=== PATIENT | female | born 1985 | race African-American/Black ===

== ENCOUNTER 2020-10-16 17:12 | Inpatient (IN) | payer OTHER ==
[2020-10-16 18:32] VITALS: BMI 33.0
[2020-10-16] MEDS ORDERED: NICOTINE POLACRILEX 2 MG GUM BUC PRN (21:18)
[2020-10-16] MEDS ORDERED: P-EPHED 60MG/TRIPROLIDI 2.5MG TABLET PO PRN (21:18)
[2020-10-16] MEDS ORDERED: METHOCARBAMOL 500 MG TABLET PO PRN (21:18)
[2020-10-16] MEDS ORDERED: hydrOXYzine PAMOATE 25 MG CAPSULE (FP) PO PRN (21:18)
[2020-10-16] MEDS ORDERED: MAG HYDROX/AL HYDROX/SIMETH 30 ML UNIT-DOSE CUP PO PRN (21:18)
[2020-10-16] MEDS ORDERED: ONDANSETRON *ODT* 4 MG TABLET SL PRN (21:18)
[2020-10-16] MEDS ORDERED: MAGNESIUM HYDROX 2400MG/30ML ORAL SUSPENSION 30 ML CUP PO PRN (21:18)
[2020-10-16] MEDS ORDERED: DICYCLOMINE HCL 10 MG CAPSULE PO PRN (21:18)
[2020-10-16] MEDS ORDERED: ACETAMINOPHEN 325 MG TABLET (FP) PO PRN ×2 (21:18)
[2020-10-16] MEDS ORDERED: MENTHOL/PHENOL 1 EACH UD MM PRN (21:18)
[2020-10-16] MEDS ORDERED: MAGNESIUM CITRATE 300 ML BOTTLE PO PRN (21:18)
[2020-10-16] MEDS ORDERED: chlordiazePOXIDE HCL 25 MG CAPSULE PO PRN (21:18)
[2020-10-16] MEDS ORDERED: guaiFENesin 200 MG/10 ML 10 ML UNIT-DOSE CUPS PO PRN (21:18)
[2020-10-16] MEDS ORDERED: IBUPROFEN 400 MG TABLET (FP) PO PRN (21:18)
[2020-10-16] MEDS ORDERED: MELATONIN 5 MG TABLETS PO SCH (22:00)
[2020-10-16] MEDS: chlordiazePOXIDE HCL 25 MG CAPSULE PO SCH (22:46)
[2020-10-16] MEDS: THIAMINE HCL 100 MG TABLET (FP) PO SCH (22:46)
[2020-10-17] MEDS: chlordiazePOXIDE HCL 25 MG CAPSULE PO SCH ×4 (05:44→23:56)
[2020-10-17] MEDS ORDERED: MASKS NR ONE (05:47)
[2020-10-17] MEDS ORDERED: MELATONIN 5 MG TABLETS PO PRN (09:31)
[2020-10-17] MEDS: NICOTINE 14 MG/24 HOURS TOPICAL PATCH TD SCH (10:20)
[2020-10-17] MEDS: PRENATAL VITAMINS W/ FOLIC ACID TABLET (FP) PO SCH (10:20)
[2020-10-17] MEDS: BISMUTH SUBSALICYLATE 524 MG/30 ML UD PO PRN ×2 (10:22→13:12)
[2020-10-17 10:34] LABS: HEMATOCRIT 33.7 % (32.4-45.2); HEMOGLOBIN 11.1 GM/dL (10.7-15.3); MCH 26.9 pg (25.7-33.7); MCHC 32.8 g/dl (32.0-36.0); MEAN CELL VOLUME 81.9 fl (80-96); MEAN PLT VOLUME 8.2 fl (7.5-11.1); PLATELET COUNT 254 K/MM3 (134-434); RBC 4.12 M/mm3 (3.60-5.2); RDW 19.1 % (11.6-15.6); WHITE BLOOD COUNT 6.1 K/mm3 (4.0-10.0)
[2020-10-17 10:43] LABS: CALCIUM 8.9 mg/dL (8.5-10.1)
[2020-10-17 10:44] LABS: ALBUMIN 3.2 g/dl (3.4-5.0); BLOOD UREA NITROGEN 13.7 mg/dL (7-18)
[2020-10-17 10:47] LABS: CREATININE 0.8 mg/dL (0.55-1.3)
[2020-10-17 10:48] LABS: BILIRUBIN,TOTAL 0.5 mg/dL (0.2-1); TOT PROT 7.4 g/dl (6.4-8.2)
[2020-10-17] MEDS: THIAMINE HCL 100 MG TABLET (FP) PO SCH (23:56)
[2020-10-18] MEDS: chlordiazePOXIDE HCL 25 MG CAPSULE PO SCH ×4 (06:01→23:01)
[2020-10-18] MEDS: PRENATAL VITAMINS W/ FOLIC ACID TABLET (FP) PO SCH (10:02)
[2020-10-18] MEDS: NICOTINE 14 MG/24 HOURS TOPICAL PATCH TD SCH (10:02)
[2020-10-18] MEDS ORDERED: MINERAL OIL/PET HY-PHL TOPICAL OINTMENT 454 GM JAR TP PRN (17:03)
[2020-10-18] MEDS ORDERED: COLLOIDAL OATMEAL 1 BAR EACH TP PRN (17:03)
[2020-10-18] MEDS ORDERED: MASKS NR ONE (18:55)
[2020-10-18] MEDS: THIAMINE HCL 100 MG TABLET (FP) PO SCH (23:01)
[2020-10-19] MEDS ORDERED: chlordiazePOXIDE HCL 10 MG CAPSULE PO PRN
[2020-10-19] MEDS: chlordiazePOXIDE HCL 10 MG CAPSULE PO SCH ×4 (05:51→22:05)
[2020-10-19] MEDS: MINERAL OIL/PETROLAT/WATER TOPICAL CREAM 113 GM JAR TP PRN ×2 (10:14→17:58)
[2020-10-19] MEDS: NICOTINE 14 MG/24 HOURS TOPICAL PATCH TD SCH (10:14)
[2020-10-19] MEDS: PRENATAL VITAMINS W/ FOLIC ACID TABLET (FP) PO SCH (10:15)
[2020-10-19] MEDS ORDERED: MASKS NR ONE (21:47)
[2020-10-19] MEDS: THIAMINE HCL 100 MG TABLET (FP) PO SCH (22:04)
[2020-10-20] MEDS ORDERED: chlordiazePOXIDE HCL 10 MG CAPSULE PO SCH (05:00)
[2020-10-20 06:06] LABS: SARS-CoV-2 NAA Not Detected (Not Detected)
[2020-10-20 07:05] VITALS: BP 121/88; PULSE 83; TEMP 97.1
[2020-10-21] MEDS ORDERED: chlordiazePOXIDE HCL 10 MG CAPSULE PO ONE (05:00)
== END 2020-10-20 08:25 | disposition home or self-care (01) | DRG 775 ==
LOC: YASAS 17:12 → Y3N 21:34
PROVIDERS: ADMIT Allergy & Immunology; ATTEND Allergy & Immunology
PROC: HZ2ZZZZ Detoxification Services for Substance Abuse Treatment (ICD-10-PCS; principal; 2020-10-16)
DX: F10.230 Alcohol dependence with withdrawal, uncomplicated (principal); F17.210 Nicotine dependence, cigarettes, uncomplicated; F10.280 Alcohol dependence with alcohol-induced anxiety disorder; F10.282 Alcohol dependence with alcohol-induced sleep disorder; F19.24 Other psychoactive substance dependence with psychoactive substance-induced mood disorder; J45.909 Unspecified asthma, uncomplicated; R03.0 Elevated blood-pressure reading, without diagnosis of hypertension; Z56.0 Unemployment, unspecified; Z59.0 Homelessness
CPT/HCPCS: 36415; 80053; 81025; 85027; 86780; 93005; 93010; C9803; U0003; U0005

== ENCOUNTER 2021-05-30 14:17 | Inpatient (IN) | payer OTHER ==
[2021-05-30] MEDS ORDERED: METHOCARBAMOL 500 MG TABLET PO PRN (16:03)
[2021-05-30] MEDS ORDERED: MAGNESIUM HYDROX 2400MG/30ML ORAL SUSPENSION 30 ML CUP PO PRN (16:03)
[2021-05-30] MEDS ORDERED: MAGNESIUM CITRATE 300 ML BOTTLE PO PRN (16:03)
[2021-05-30] MEDS ORDERED: NICOTINE 10 MG CARTRIDGE (INHALER) IH PRN (16:03)
[2021-05-30] MEDS ORDERED: ACETAMINOPHEN 325 MG TABLET (FP) PO PRN ×2 (16:03)
[2021-05-30] MEDS ORDERED: MENTHOL/PHENOL 1 EACH UD MM PRN (16:03)
[2021-05-30] MEDS ORDERED: ONDANSETRON *ODT* 4 MG TABLET SL PRN (16:03)
[2021-05-30] MEDS ORDERED: MAG HYDROX/AL HYDROX/SIMETH 30 ML UNIT-DOSE CUP PO PRN (16:03)
[2021-05-30 16:34] VITALS: BMI 37.3
[2021-05-30] MEDS ORDERED: ALBUTEROL SO4 0.083% IH SOL 2.5 MG/3 ML VIAL.NEB. NEB PRN (17:15)
[2021-05-30] MEDS: hydrOXYzine PAMOATE 25 MG CAPSULE (FP) PO SCH ×2 (17:50→23:07)
[2021-05-30] MEDS: PRENATAL VITAMINS W/ FOLIC ACID TABLET (FP) PO SCH (17:50)
[2021-05-30] MEDS ORDERED: METOPROLOL TARTRATE 25 MG TABLET (FP) PO ONE (18:21)
[2021-05-30] MEDS: BISMUTH SUBSALICYLATE 524 MG/30 ML PO PRN (18:45)
[2021-05-30] MEDS ORDERED: MELATONIN 5 MG TABLETS PO SCH (22:00)
[2021-05-30] MEDS: THIAMINE HCL 100 MG TABLET (FP) PO SCH (23:07)
[2021-05-31] MEDS ORDERED: MASKS NR ONE (05:39)
[2021-05-31] MEDS: hydrOXYzine PAMOATE 25 MG CAPSULE (FP) PO SCH ×5 (05:55→22:51)
[2021-05-31] MEDS ORDERED: COLLOIDAL OATMEAL 1 BAR EACH TP PRN (07:25)
[2021-05-31] MEDS: PRENATAL VITAMINS W/ FOLIC ACID TABLET (FP) PO SCH (10:13)
[2021-05-31] MEDS: BISMUTH SUBSALICYLATE 524 MG/30 ML PO PRN ×2 (11:47→13:05)
[2021-05-31] MEDS ORDERED: diazePAM 5 MG TABLET PO PRN (11:50)
[2021-05-31] MEDS: MINERAL OIL/PETROLAT/WATER TOPICAL CREAM 113 GM JAR TP SCH ×2 (13:06→23:11)
[2021-05-31] MEDS: IBUPROFEN 400 MG TABLET (FP) PO PRN (13:56)
[2021-05-31 14:04] LABS: HEMATOCRIT 34.3 % (32.4-45.2); HEMOGLOBIN 11.5 GM/dL (10.7-15.3); MCH 28.8 pg (25.7-33.7); MCHC 33.6 g/dl (32.0-36.0); MEAN CELL VOLUME 85.9 fl (80-96); MEAN PLT VOLUME 8.1 fl (7.5-11.1); PLATELET COUNT 209 10^3/uL (134-434); RBC 3.99 M/mm3 (3.60-5.2)
[2021-05-31 14:20] LABS: CALCIUM 8.5 mg/dL (8.5-10.1)
[2021-05-31 14:21] LABS: ALBUMIN 2.8 g/dl (3.4-5.0); BLOOD UREA NITROGEN 13.1 mg/dL (7-18)
[2021-05-31 14:24] LABS: CREATININE 0.7 mg/dL (0.55-1.3)
[2021-05-31 14:26] LABS: TOT PROT 6.9 g/dl (6.4-8.2)
[2021-05-31 14:29] LABS: BILIRUBIN,TOTAL 0.4 mg/dL (0.2-1)
[2021-05-31 16:08] LABS: HIV INTERPRETATION NEGATIVE (NEGATIVE)
[2021-05-31] MEDS: THIAMINE HCL 100 MG TABLET (FP) PO SCH (22:50)
[2021-05-31] MEDS: MELATONIN 5 MG TABLETS PO SCH (22:51)
[2021-06-01] MEDS: hydrOXYzine PAMOATE 25 MG CAPSULE (FP) PO SCH ×5 (06:11→23:09)
[2021-06-01] MEDS ORDERED: chlordiazePOXIDE HCL 25 MG CAPSULE PO PRN (09:53)
[2021-06-01] MEDS ORDERED: ALBUTEROL SO4 HFA INHALER IH PRN (09:55)
[2021-06-01] MEDS: PRENATAL VITAMINS W/ FOLIC ACID TABLET (FP) PO SCH (10:31)
[2021-06-01] MEDS: chlordiazePOXIDE HCL 25 MG CAPSULE PO SCH ×3 (10:31→23:09)
[2021-06-01] MEDS: MINERAL OIL/PETROLAT/WATER TOPICAL CREAM 113 GM JAR TP SCH ×2 (10:32→23:10)
[2021-06-01] MEDS: IBUPROFEN 400 MG TABLET (FP) PO PRN (18:24)
[2021-06-01] MEDS: THIAMINE HCL 100 MG TABLET (FP) PO SCH (23:09)
[2021-06-01] MEDS: MELATONIN 5 MG TABLETS PO SCH (23:10)
[2021-06-02] MEDS: hydrOXYzine PAMOATE 25 MG CAPSULE (FP) PO SCH ×5 (06:05→23:11)
[2021-06-02] MEDS: chlordiazePOXIDE HCL 25 MG CAPSULE PO SCH ×4 (06:05→23:11)
[2021-06-02] MEDS ORDERED: MASKS NR ONE (06:09)
[2021-06-02] MEDS: PRENATAL VITAMINS W/ FOLIC ACID TABLET (FP) PO SCH (10:10)
[2021-06-02] MEDS: MINERAL OIL/PETROLAT/WATER TOPICAL CREAM 113 GM JAR TP SCH ×2 (10:14→23:11)
[2021-06-02] MEDS: THIAMINE HCL 100 MG TABLET (FP) PO SCH (23:11)
[2021-06-02] MEDS: MELATONIN 5 MG TABLETS PO SCH (23:11)
[2021-06-03] MEDS: chlordiazePOXIDE HCL 25 MG CAPSULE PO SCH ×4 (05:55→22:37)
[2021-06-03] MEDS: hydrOXYzine PAMOATE 25 MG CAPSULE (FP) PO SCH ×5 (05:56→22:36)
[2021-06-03] MEDS: PRENATAL VITAMINS W/ FOLIC ACID TABLET (FP) PO SCH (11:35)
[2021-06-03] MEDS: MINERAL OIL/PETROLAT/WATER TOPICAL CREAM 113 GM JAR TP SCH ×2 (11:37→22:36)
[2021-06-03] MEDS: THIAMINE HCL 100 MG TABLET (FP) PO SCH (22:36)
[2021-06-03] MEDS: MELATONIN 5 MG TABLETS PO SCH (22:37)
[2021-06-04] MEDS ORDERED: chlordiazePOXIDE HCL 10 MG CAPSULE PO PRN
[2021-06-04] MEDS: chlordiazePOXIDE HCL 10 MG CAPSULE PO SCH ×4 (06:34→23:05)
[2021-06-04] MEDS: hydrOXYzine PAMOATE 25 MG CAPSULE (FP) PO SCH ×5 (06:35→23:06)
[2021-06-04] MEDS: PRENATAL VITAMINS W/ FOLIC ACID TABLET (FP) PO SCH (10:42)
[2021-06-04] MEDS: MINERAL OIL/PETROLAT/WATER TOPICAL CREAM 113 GM JAR TP SCH ×2 (10:42→23:05)
[2021-06-04] MEDS: MELATONIN 5 MG TABLETS PO SCH (23:06)
[2021-06-04] MEDS: THIAMINE HCL 100 MG TABLET (FP) PO SCH (23:06)
[2021-06-05] MEDS: hydrOXYzine PAMOATE 25 MG CAPSULE (FP) PO SCH ×3 (06:19→13:27)
[2021-06-05] MEDS: chlordiazePOXIDE HCL 10 MG CAPSULE PO SCH ×2 (06:19→18:07)
[2021-06-05] MEDS: PRENATAL VITAMINS W/ FOLIC ACID TABLET (FP) PO SCH (10:25)
[2021-06-05] MEDS: MINERAL OIL/PETROLAT/WATER TOPICAL CREAM 113 GM JAR TP SCH ×2 (10:26→22:53)
[2021-06-05] MEDS: IBUPROFEN 400 MG TABLET (FP) PO PRN (17:20)
[2021-06-05] MEDS ORDERED: cloNIDine HCL 0.1 MG TABLET PO PRN (17:40)
[2021-06-05] MEDS: MELATONIN 5 MG TABLETS PO SCH (22:54)
[2021-06-05] MEDS: THIAMINE HCL 100 MG TABLET (FP) PO SCH (22:54)
[2021-06-06] MEDS ORDERED: chlordiazePOXIDE HCL 10 MG CAPSULE PO ONE (05:00)
[2021-06-06 07:15] VITALS: BP 114/51; PULSE 74; TEMP 96.8
== END 2021-06-06 08:54 | disposition home or self-care (01) | DRG 775 ==
LOC: YASAS 14:17 → Y3N 16:31 → UNDOADMIN 16:31
PROVIDERS: ADMIT Allergy & Immunology; ATTEND Allergy & Immunology
PROC: HZ2ZZZZ Detoxification Services for Substance Abuse Treatment (ICD-10-PCS; principal; 2021-05-30)
DX: F10.230 Alcohol dependence with withdrawal, uncomplicated (principal); F17.210 Nicotine dependence, cigarettes, uncomplicated; F32.A Depression, unspecified; F19.24 Other psychoactive substance dependence with psychoactive substance-induced mood disorder; R03.0 Elevated blood-pressure reading, without diagnosis of hypertension; R77.0 Abnormality of albumin; R00.0 Tachycardia, unspecified; J45.909 Unspecified asthma, uncomplicated; E66.9 Obesity, unspecified; Z68.37 Body mass index [BMI] 37.0-37.9, adult
CPT/HCPCS: 36415; 80053; 85027; 86780; 87389; C9803; U0003; U0005

== ENCOUNTER 2021-08-27 11:29 | Inpatient (IN) | payer OTHER ==
[2021-08-27 12:39] VITALS: BMI 34.9
[2021-08-27] MEDS ORDERED: MENTHOL/PHENOL 1 EACH UD MM PRN (13:45)
[2021-08-27] MEDS ORDERED: chlordiazePOXIDE HCL 25 MG CAPSULE PO PRN (13:45)
[2021-08-27] MEDS ORDERED: LOPERAMIDE HCL 2 MG CAPSULE PO PRN (13:45)
[2021-08-27] MEDS ORDERED: ACETAMINOPHEN 325 MG TABLET (FP) PO PRN ×2 (13:45)
[2021-08-27] MEDS ORDERED: MAGNESIUM HYDROX 2400MG/30ML ORAL SUSPENSION 30 ML CUP PO PRN (13:45)
[2021-08-27] MEDS ORDERED: MAG HYDROX/AL HYDROX/SIMETH 30 ML UNIT-DOSE CUP PO PRN (13:45)
[2021-08-27] MEDS ORDERED: ONDANSETRON *ODT* 4 MG TABLET SL PRN (13:45)
[2021-08-27] MEDS ORDERED: NICOTINE 10 MG CARTRIDGE (INHALER) IH PRN (13:45)
[2021-08-27] MEDS ORDERED: MAGNESIUM CITRATE 300 ML BOTTLE PO PRN (13:45)
[2021-08-27] MEDS ORDERED: chlordiazePOXIDE HCL 25 MG CAPSULE ONE ×2 (15:21→18:22)
[2021-08-27] MEDS ORDERED: hydrOXYzine PAMOATE 25 MG CAPSULE (FP) PO ONE (15:21)
[2021-08-27] MEDS: PRENATAL VITAMINS W/ FOLIC ACID TABLET (FP) PO SCH (15:23)
[2021-08-27] MEDS: hydrOXYzine PAMOATE 25 MG CAPSULE (FP) PO SCH ×3 (15:23→23:48)
[2021-08-27] MEDS ORDERED: ALBUTEROL SO4 HFA INHALER IH PRN (15:36)
[2021-08-27] MEDS: chlordiazePOXIDE HCL 25 MG CAPSULE PO SCH ×2 (18:24→23:47)
[2021-08-27] MEDS: COLLOIDAL OATMEAL 1 BAR EACH TP PRN (20:06)
[2021-08-27] MEDS: MELATONIN 5 MG TABLETS PO SCH (23:47)
[2021-08-27] MEDS: COLLOIDAL OATMEAL 1 EACH PACKET TP SCH (23:47)
[2021-08-27] MEDS: BACITRACIN 15 GM TUBE TOPICAL OINTMENT TP SCH (23:47)
[2021-08-27] MEDS: THIAMINE HCL 100 MG TABLET (FP) PO SCH (23:48)
[2021-08-28] MEDS: chlordiazePOXIDE HCL 25 MG CAPSULE PO SCH ×4 (06:19→22:58)
[2021-08-28] MEDS: hydrOXYzine PAMOATE 25 MG CAPSULE (FP) PO SCH ×5 (06:20→22:59)
[2021-08-28] MEDS: METHOCARBAMOL 500 MG TABLET PO PRN (09:10)
[2021-08-28] MEDS: IBUPROFEN 400 MG TABLET (FP) PO PRN ×2 (09:10→19:33)
[2021-08-28] MEDS: BACITRACIN 15 GM TUBE TOPICAL OINTMENT TP SCH ×2 (10:35→22:58)
[2021-08-28] MEDS: PRENATAL VITAMINS W/ FOLIC ACID TABLET (FP) PO SCH (10:35)
[2021-08-28] MEDS: amLODIPine BESYLATE 5 MG TABLET (FP) PO SCH (12:38)
[2021-08-28 12:45] LABS: HEMATOCRIT 36.3 % (32.4-45.2); HEMOGLOBIN 12.2 GM/dL (10.7-15.3); MCH 29.1 pg (25.7-33.7); MCHC 33.7 g/dl (32.0-36.0); MEAN CELL VOLUME 86.5 fl (80-96); MEAN PLT VOLUME 8.3 fl (7.5-11.1); PLATELET COUNT 191 10^3/uL (134-434); RDW 17.6 % (11.6-15.6); WHITE BLOOD COUNT 5.7 K/mm3 (4.0-10.0)
[2021-08-28 12:56] LABS: ALBUMIN 2.9 g/dl (3.4-5.0); BLOOD UREA NITROGEN 6.6 mg/dL (7-18); CALCIUM 8.6 mg/dL (8.5-10.1)
[2021-08-28 12:59] LABS: CREATININE 0.6 mg/dL (0.55-1.3)
[2021-08-28 13:01] LABS: BILIRUBIN,TOTAL 0.4 mg/dL (0.2-1); TOT PROT 6.6 g/dl (6.4-8.2)
[2021-08-28] MEDS: COLLOIDAL OATMEAL 1 EACH PACKET TP SCH (15:14)
[2021-08-28] MEDS: BISMUTH SUBSALICYLATE 524 MG/30 ML PO PRN (18:09)
[2021-08-28] MEDS: MELATONIN 5 MG TABLETS PO SCH (22:58)
[2021-08-28] MEDS: THIAMINE HCL 100 MG TABLET (FP) PO SCH (22:59)
[2021-08-29] MEDS: hydrOXYzine PAMOATE 25 MG CAPSULE (FP) PO SCH ×5 (06:10→22:17)
[2021-08-29] MEDS: METHOCARBAMOL 500 MG TABLET PO PRN (06:11)
[2021-08-29] MEDS: chlordiazePOXIDE HCL 25 MG CAPSULE PO SCH ×4 (06:11→22:17)
[2021-08-29] MEDS: PRENATAL VITAMINS W/ FOLIC ACID TABLET (FP) PO SCH (10:08)
[2021-08-29] MEDS: amLODIPine BESYLATE 5 MG TABLET (FP) PO SCH (10:08)
[2021-08-29] MEDS ORDERED: BACITRACIN 0.9 GM PACKET ONE (10:09)
[2021-08-29] MEDS: COLLOIDAL OATMEAL 1 BAR EACH TP PRN (10:12)
[2021-08-29] MEDS: BACITRACIN 15 GM TUBE TOPICAL OINTMENT TP SCH ×2 (10:36→22:17)
[2021-08-29] MEDS: COLLOIDAL OATMEAL 1 EACH PACKET TP SCH (14:54)
[2021-08-29 16:07] LABS: SARS-CoV-2 NAA Not Detected (Not Detected)
[2021-08-29 17:22] LABS: HIV INTERPRETATION NEGATIVE (NEGATIVE)
[2021-08-29] MEDS: MELATONIN 5 MG TABLETS PO SCH (22:17)
[2021-08-29] MEDS: QUEtiapine FUMARATE 50 MG TABLET PO SCH (22:17)
[2021-08-29] MEDS: THIAMINE HCL 100 MG TABLET (FP) PO SCH (22:17)
[2021-08-30] MEDS ORDERED: chlordiazePOXIDE HCL 10 MG CAPSULE PO PRN
[2021-08-30] MEDS: chlordiazePOXIDE HCL 10 MG CAPSULE PO SCH ×4 (05:52→23:12)
[2021-08-30] MEDS: hydrOXYzine PAMOATE 25 MG CAPSULE (FP) PO SCH ×5 (05:52→23:10)
[2021-08-30] MEDS: PRENATAL VITAMINS W/ FOLIC ACID TABLET (FP) PO SCH (10:24)
[2021-08-30] MEDS: amLODIPine BESYLATE 5 MG TABLET (FP) PO SCH (10:25)
[2021-08-30] MEDS: METHOCARBAMOL 500 MG TABLET PO PRN (10:25)
[2021-08-30] MEDS: BACITRACIN 15 GM TUBE TOPICAL OINTMENT TP SCH ×2 (10:28→23:26)
[2021-08-30] MEDS: COLLOIDAL OATMEAL 1 EACH PACKET TP SCH (13:08)
[2021-08-30] MEDS: BISMUTH SUBSALICYLATE 524 MG/30 ML PO PRN (15:39)
[2021-08-30] MEDS: THIAMINE HCL 100 MG TABLET (FP) PO SCH (23:10)
[2021-08-30] MEDS: MELATONIN 5 MG TABLETS PO SCH (23:26)
[2021-08-30] MEDS: QUEtiapine FUMARATE 50 MG TABLET PO SCH (23:27)
[2021-08-31] MEDS ORDERED: chlordiazePOXIDE HCL 10 MG CAPSULE PO SCH (05:00)
[2021-08-31] MEDS: hydrOXYzine PAMOATE 25 MG CAPSULE (FP) PO SCH ×3 (06:15→14:47)
[2021-08-31] MEDS: amLODIPine BESYLATE 5 MG TABLET (FP) PO SCH (10:25)
[2021-08-31] MEDS: PRENATAL VITAMINS W/ FOLIC ACID TABLET (FP) PO SCH (10:25)
[2021-08-31] MEDS ORDERED: BACITRACIN 0.9 GM PACKET ONE (10:26)
[2021-08-31] MEDS: BACITRACIN 15 GM TUBE TOPICAL OINTMENT TP SCH (10:38)
[2021-08-31 13:02] VITALS: BP 123/76; PULSE 75; TEMP 98
[2021-08-31] MEDS: COLLOIDAL OATMEAL 1 EACH PACKET TP SCH (14:47)
[2021-08-31] MEDS ORDERED: chlordiazePOXIDE 5 MG CAPSULE PO SCH (18:00)
[2021-09-01] MEDS ORDERED: chlordiazePOXIDE HCL 10 MG CAPSULE PO ONE (05:00)
[2021-09-01] MEDS ORDERED: chlordiazePOXIDE 5 MG CAPSULE PO ONE (05:00)
== END 2021-08-31 14:30 | disposition home or self-care (01) | DRG 775 ==
LOC: YASAS 11:29 → UNDOADMIN 14:50 → Y3N 14:50 → Y6N 19:26
PROVIDERS: ADMIT Allergy & Immunology; ATTEND Allergy & Immunology
PROC: HZ2ZZZZ Detoxification Services for Substance Abuse Treatment (ICD-10-PCS; principal; 2021-08-27)
DX: F10.230 Alcohol dependence with withdrawal, uncomplicated (principal); F10.282 Alcohol dependence with alcohol-induced sleep disorder; F10.280 Alcohol dependence with alcohol-induced anxiety disorder; F17.210 Nicotine dependence, cigarettes, uncomplicated; F41.9 Anxiety disorder, unspecified; F32.A Depression, unspecified; I10 Essential (primary) hypertension; J45.20 Mild intermittent asthma, uncomplicated; Z56.0 Unemployment, unspecified; Z59.00 Homelessness unspecified
CPT/HCPCS: 36415; 80053; 81025; 85027; 86780; 87389; 87811; C9803; U0003; U0005

== ENCOUNTER 2021-10-08 14:56 | Inpatient (IN) | payer OTHER ==
[2021-10-08 16:04] VITALS: BMI 36.4
[2021-10-08] MEDS ORDERED: IBUPROFEN 400 MG TABLET (FP) PO PRN (18:28)
[2021-10-08] MEDS ORDERED: BENZOCAINE/MENTHOL (CHLORASEPTIC ) LOZENGE MM PRN (18:28)
[2021-10-08] MEDS ORDERED: ACETAMINOPHEN 325 MG TABLET (FP) PO PRN ×2 (18:28)
[2021-10-08] MEDS ORDERED: MAGNESIUM HYDROX 2400MG/30ML ORAL SUSPENSION 30 ML CUP PO PRN (18:28)
[2021-10-08] MEDS ORDERED: ONDANSETRON *ODT* 4 MG TABLET SL PRN (18:28)
[2021-10-08] MEDS ORDERED: MAGNESIUM CITRATE 300 ML BOTTLE PO PRN (18:28)
[2021-10-08] MEDS ORDERED: METHOCARBAMOL 500 MG TABLET PO PRN (18:28)
[2021-10-08] MEDS ORDERED: chlordiazePOXIDE HCL 25 MG CAPSULE PO PRN (18:32)
[2021-10-08] MEDS: COLLOIDAL OATMEAL 1 BAR EACH TP PRN (20:23)
[2021-10-08] MEDS: THIAMINE HCL 100 MG TABLET (FP) PO SCH (22:41)
[2021-10-08] MEDS: chlordiazePOXIDE HCL 25 MG CAPSULE PO SCH (22:41)
[2021-10-08] MEDS: MELATONIN 5 MG TABLETS PO SCH (22:41)
[2021-10-09] MEDS: chlordiazePOXIDE HCL 25 MG CAPSULE PO SCH ×3 (06:51→18:39)
[2021-10-09] MEDS: MAG HYDROX/AL HYDROX/SIMETH 30 ML UNIT-DOSE CUP PO PRN ×2 (06:54→16:08)
[2021-10-09] MEDS: BISMUTH SUBSALICYLATE 524 MG/30 ML PO PRN ×2 (08:54→17:22)
[2021-10-09] MEDS ORDERED: QUEtiapine FUMARATE 50 MG TABLET PO ONE (10:25)
[2021-10-09] MEDS ORDERED: hydrOXYzine PAMOATE 50 MG CAPSULE (FP) PO PRN ×2 (10:26→14:31)
[2021-10-09] MEDS: PRENATAL VITAMINS W/ FOLIC ACID TABLET (FP) PO SCH (10:41)
[2021-10-09 12:58] LABS: HEMATOCRIT 36.8 % (32.4-45.2); HEMOGLOBIN 12.1 GM/dL (10.7-15.3); MCH 28.7 pg (25.7-33.7); MCHC 32.9 g/dl (32.0-36.0); MEAN CELL VOLUME 87.3 fl (80-96); MEAN PLT VOLUME 8.6 fl (7.5-11.1); PLATELET COUNT 165 10^3/uL (134-434); RBC 4.21 M/mm3 (3.60-5.2); RDW 15.5 % (11.6-15.6); WHITE BLOOD COUNT 5.9 K/mm3 (4.0-10.0)
[2021-10-09 13:02] LABS: BLOOD UREA NITROGEN 14.8 mg/dL (7-18); CALCIUM 8.7 mg/dL (8.5-10.1)
[2021-10-09] MEDS: NICOTINE 14 MG/24 HOURS TOPICAL PATCH TD SCH (13:02)
[2021-10-09 13:04] LABS: CREATININE 0.7 mg/dL (0.55-1.3)
[2021-10-09 13:06] LABS: BILIRUBIN,TOTAL 0.4 mg/dL (0.2-1); TOT PROT 7.2 g/dl (6.4-8.2)
[2021-10-09] MEDS: LOPERAMIDE HCL 2 MG CAPSULE PO PRN ×2 (13:08→19:14)
[2021-10-09] MEDS: DICYCLOMINE HCL 10 MG CAPSULE PO PRN ×2 (13:57→18:38)
[2021-10-09] MEDS ORDERED: cloNIDine HCL 0.1 MG TABLET PO PRN (16:09)
[2021-10-09] MEDS: AMMONIUM LACTATE 12% LOTION 225 GM BOTTLE TP SCH (18:43)
[2021-10-09] MEDS ORDERED: KETOCONAZOLE 2 % SHAMPOO 120 ML BOTTLE TP SCH (20:00)
[2021-10-09] MEDS ORDERED: QUEtiapine FUMARATE 100 MG TABLET (FP) PO SCH (22:00)
[2021-10-09] MEDS ORDERED: QUEtiapine FUMARATE 50 MG TABLET PO SCH (22:00)
[2021-10-09] MEDS ORDERED: traZODone HCL 50 MG TABLET (FP) PO SCH (22:00)
[2021-10-10] MEDS: chlordiazePOXIDE HCL 25 MG CAPSULE PO SCH ×3 (00:05→10:59)
[2021-10-10] MEDS: MELATONIN 5 MG TABLETS PO SCH (00:06)
[2021-10-10] MEDS: THIAMINE HCL 100 MG TABLET (FP) PO SCH (00:06)
[2021-10-10] MEDS: BISMUTH SUBSALICYLATE 524 MG/30 ML PO PRN ×2 (01:38→07:52)
[2021-10-10] MEDS: DICYCLOMINE HCL 10 MG CAPSULE PO PRN (01:54)
[2021-10-10] MEDS: COLLOIDAL OATMEAL 1 BAR EACH TP PRN (07:52)
[2021-10-10] MEDS: NICOTINE POLACRILEX 2 MG GUM BUC PRN ×2 (09:18→11:14)
[2021-10-10 09:42] VITALS: BP 143/94; PULSE 101; TEMP 98.7
[2021-10-10] MEDS ORDERED: QUEtiapine FUMARATE 50 MG TABLET PO SCH (10:00)
[2021-10-10] MEDS: PRENATAL VITAMINS W/ FOLIC ACID TABLET (FP) PO SCH (10:59)
[2021-10-10] MEDS ORDERED: LOPERAMIDE HCL 2 MG CAPSULE PO PRN ×2 (11:09→18:28)
[2021-10-10] MEDS: NICOTINE 14 MG/24 HOURS TOPICAL PATCH TD SCH (11:14)
[2021-10-10] MEDS: AMMONIUM LACTATE 12% LOTION 225 GM BOTTLE TP SCH (11:14)
[2021-10-11] MEDS ORDERED: chlordiazePOXIDE HCL 10 MG CAPSULE PO PRN
[2021-10-11] MEDS ORDERED: chlordiazePOXIDE HCL 10 MG CAPSULE PO SCH (05:00)
[2021-10-12] MEDS ORDERED: chlordiazePOXIDE HCL 10 MG CAPSULE PO SCH (05:00)
[2021-10-13] MEDS ORDERED: chlordiazePOXIDE HCL 10 MG CAPSULE PO ONE (05:00)
== END 2021-10-10 15:30 | disposition left against medical advice (07) | DRG 770 ==
LOC: YASAS 14:56 → Y6N 19:29
PROVIDERS: ADMIT Allergy & Immunology; ATTEND Allergy & Immunology
PROC: HZ2ZZZZ Detoxification Services for Substance Abuse Treatment (ICD-10-PCS; principal; 2021-10-08)
DX: F10.230 Alcohol dependence with withdrawal, uncomplicated (principal); F17.213 Nicotine dependence, cigarettes, with withdrawal; F10.24 Alcohol dependence with alcohol-induced mood disorder; F60.3 Borderline personality disorder; F41.8 Other specified anxiety disorders; F32.A Depression, unspecified; F39 Unspecified mood [affective] disorder; I10 Essential (primary) hypertension; J45.20 Mild intermittent asthma, uncomplicated; Z91.410 Personal history of adult physical and sexual abuse; Z91.014 Allergy to mammalian meats; Z88.0 Allergy status to penicillin; Z88.5 Allergy status to narcotic agent; Z56.0 Unemployment, unspecified; Z59.01 Sheltered homelessness
CPT/HCPCS: 36415; 80053; 81025; 85027; 86780; 87811; 93005; 93010; C9803-CS; Q0162; U0003; U0005